=== PATIENT | female | born 1980 | race Caucasian/White ===

== ENCOUNTER → 2017-12-11 | Outpatient (CLI) | payer OTHER | LOC: FIMAGING 08:10 | PROVIDERS: ATTEND Radiology Diagnostic Radiology | DX: M54.32 Sciatica, left side (principal); N83.201 Unspecified ovarian cyst, right side; N83.202 Unspecified ovarian cyst, left side; I86.2 Pelvic varices; Z97.5 Presence of (intrauterine) contraceptive device ==